=== PATIENT | female | born 1975 | race Caucasian/White ===

== ENCOUNTER 2021-12-21 15:11 | Outpatient (RCR) | payer BC | END 2022-01-04 | disposition home or self-care (01) | LOC: ONC 15:11 | PROVIDERS: ATTEND Internal Medicine Hematology & Oncology | DX: D72.829 Elevated white blood cell count, unspecified (principal) | CPT/HCPCS: 99204 ==

== ENCOUNTER 2022-10-14 04:10 | Emergency (ER) | payer BC ==
[~2022-10-14] VITALS: Ht 149.8 cm; Wt 108.5 kg
[2022-10-14] MEDS ORDERED: NITROGLYCERIN 0.4 MG SL TABLETS BTL 25'S SL STA (04:18)
--- NOTE | 2022-10-14 04:21 | ED Chest Pain ---
General Stated Complaint: CHEST PAIN Source: patient Exam Limitations: no limitations History of Present Illness Date Seen by Provider: Oct 14, 2022 Time Seen by Provider: 04:10 Initial Comments 47-year-old female with history of high blood pressure high cholesterol and diabetes mellitus presents to the emergency department for chest pain. Symptoms started when she woke up around 320. She describes it as a sensation as though she had worked out with pressure in her bilateral anterior chest wall. She did have some mild shortness of breath at the onset of her symptoms but denies any now. Pain initially at onset was 5-6 out of 10, now it is barely present at all. She denies any fevers or chills but has had some recent chest congestion. She has never had any cardiac history. She has never had a heart catheter stress test. No obvious aggravating or alleviating factors and no other associated symptoms. All other systems reviewed and negative except documented per HPI. Voice recognition software was used to help create this chart Allergies and Home Medications Allergies Coded Allergies: No Known Drug Allergies (Unverified , 10/14/22) Patient Home Medication List Home Medication List Reviewed: Yes Review of Systems Review of Systems Constitutional: see HPI Past Tgjdffr-Cpjuam-Ndzkgm Hx Patient Social History Tobacco Use?: Yes Use of E-Cig and/or Vaping dev: No Substance use?: No Alcohol Use?: No Physical Exam Vital Signs Vital Signs - First Documented 10/14/22 04:10 Temp 37.0 Pulse 93 Resp 18 B/P (MAP) 203/99 (133) Pulse Ox 97 O2 Delivery Room Air Capillary Refill : Height, Weight, BMI Height: '" Weight: lbs. oz. kg; BMI Method: General Appearance: No Apparent Distress, WD/WN HEENT: Normal ENT Inspection, Pharynx Normal Neck: Full Range of Motion, Normal Inspection, Non Tender, Supple Respiratory: Chest Non Tender, Lungs Clear, Normal Breath Sounds, No Accessory Muscle Use, No Respiratory Distress Cardiovascular: Regular Rate, Rhythm, No Murmur, Normal Peripheral Pulses Gastrointestinal: Normal Bowel Sounds, No Organomegaly, Non Tender, Soft Neurologic/Psychiatric: Alert, Oriented x3 Skin: Normal Color, Warm/Dry Progress/Results/Core Measures Results/Orders Lab Results Laboratory Tests Test 10/14/22 04:42 Range/Units White Blood Count 12.8 H 4.3-11.0 10^3/uL Red Blood Count 4.78 3.80-5.11 10^6/uL Hemoglobin 15.1 11.5-16.0 g/dL Hematocrit 44 35-52 % Mean Corpuscular Volume 91 80-99 fL Mean Corpuscular Hemoglobin 32 25-34 pg Mean Corpuscular Hemoglobin Concent 35 32-36 g/dL Red Cell Distribution Width 12.8 10.0-14.5 % Platelet Count 270 130-400 10^3/uL Mean Platelet Volume 9.6 9.0-12.2 fL Immature Granulocyte % (Auto) 0 % Neutrophils (%) (Auto) 59 42-75 % Lymphocytes (%) (Auto) 31 12-44 % Monocytes (%) (Auto) 6 0-12 % Eosinophils (%) (Auto) 3 0-10 % Basophils (%) (Auto) 1 0-10 % Neutrophils # (Auto) 7.5 1.8-7.8 10^3/uL Lymphocytes # (Auto) 3.9 1.0-4.0 10^3/uL Monocytes # (Auto) 0.8 0.0-1.0 10^3/uL Eosinophils # (Auto) 0.4 H 0.0-0.3 10^3/uL Basophils # (Auto) 0.1 0.0-0.1 10^3/uL Immature Granulocyte # (Auto) 0.0 0.0-0.1 10^3/uL My Orders Orders - MARY DEGROOT DO Cbc With Automated Diff (10/14/22 04:17) Chest 1 View Ap/Pa Only (10/14/22 04:17) Ekg Tracing (10/14/22 04:17) Comprehensive Metabolic Panel (10/14/22 04:17) Monitor-Rhythm Ecg Trace Only (10/14/22 04:17) Aspirin Chewable Tablet (Aspirin Chewabl (10/14/22 04:30) Ed Iv/Invasive Line Start (10/14/22 04:17) Troponin I Fs (10/14/22 04:17) Nitroglycerin 0.4 Mg Btl 25's (Nitroglyc (10/14/22 04:18) Medications Given in ED Current Medications Medications Dose Ordered Sig/Julieta Route Start Time Stop Time Status Last Admin Dose Admin Aspirin 324 mg ONCE ONCE PO 10/14/22 04:30 10/14/22 04:31 DC 10/14/22 04:29 324 MG Vital Signs/I&O 10/14/22 04:10 Temp 37.0 Pulse 93 Resp 18 B/P (MAP) 203/99 (133) Pulse Ox 97 O2 Delivery Room Air Comment Sinus rhythm with a rate of 88 bpm. Normal intervals. Left axis deviation. No ST or T wave abnormalities. No ectopy. No STEMI. Departure Communication (Admissions) Family Conversation Patient is hemodynamically stable. 2 neg sets of cardiac enzymes and nonischemic EKG. HEART score is 3. CXR is negative on my independent review. Impression Primary Impression: Chest pain Qualified Codes: R07.9 - Chest pain, unspecified Disposition: HOME, SELF-CARE Condition: Stable Departure-Patient Inst. Referrals: NOAH VELAZQUEZ APRN (PCP) Primary Care Physician Patient Instructions: Chest Pain (DC) Add. Discharge Instructions: You were seen in the ER for chest pain, No obvious cause was identified in the ER today. Your workup here is unremarkable with normal heart enzymes and a normal electrical tracing of your heart. This places you at low overall risk for heart attack. I recommend you follow up with your primary doctor in the next week for further treatment recommendations. Return to the ER for any recurrence of symptoms of if your symptoms change in any way concerning to you. MARY DEGROOT DO Oct 14, 2022 04:21
[2022-10-14] MEDS ORDERED: ASPIRIN 81 MG CHEWABLE TABLET PO ONE (04:30)
[2022-10-14 04:44] LABS: BASOPHILS # (AUTO) 0.1 10^3/uL (0.0-0.1); BASOPHILS % (AUTO) 1 % (0-10); EOSINOPHILS # (AUTO) 0.4 10^3/uL (0.0-0.3); EOSINOPHILS % (AUTO) 3 % (0-10); HEMATOCRIT 44 % (35-52); HEMOGLOBIN 15.1 g/dL (11.5-16.0); LYMPHOCYTES # (AUTO) 3.9 10^3/uL (1.0-4.0); LYMPHOCYTES % (AUTO) 31 % (12-44); MEAN CORPUSCULAR HEMOGLOBIN 32 pg (25-34); MEAN CORPUSCULAR HGB CONC 35 g/dL (32-36); MEAN CORPUSCULAR VOLUME 91 fL (80-99); MEAN PLATELET VOLUME 9.6 fL (9.0-12.2); MONOCYTES # (AUTO) 0.8 10^3/uL (0.0-1.0); MONOCYTES % (AUTO) 6 % (0-12); NEUTROPHILS # (AUTO) 7.5 10^3/uL (1.8-7.8); NEUTROPHILS % (AUTO) 59 % (42-75); PLATELET COUNT 270 10^3/uL (130-400); WHITE BLOOD COUNT 12.8 10^3/uL (4.3-11.0)
[2022-10-14 05:08] LABS: ALANINE AMINOTRANSFERASE 30 U/L (0-55); ALBUMIN 4.3 GM/DL (3.2-4.5); ALKALINE PHOSPHATASE 121 U/L (40-136); BILIRUBIN,TOTAL 0.3 MG/DL (0.1-1.0); BUN/CREATININE RATIO 33; CALCIUM 9.9 MG/DL (8.5-10.1); CARBON DIOXIDE 23 MMOL/L (21-32); CHLORIDE 102 MMOL/L (98-107); CREATININE SERUM 0.45 MG/DL (0.60-1.30); GFR ESTIMATED 120; GLUCOSE 230 MG/DL (70-105); POTASSIUM 3.7 MMOL/L (3.6-5.0); SODIUM 139 MMOL/L (135-145); TOTAL PROTEIN 7.1 GM/DL (6.4-8.2)
[2022-10-14 06:31] VITALS: BP 146/92
--- NOTE | 2022-10-14 06:38 | Diagnostic Imaging Report ---
CLINICAL INDICATION: Patient with chest pain. EXAM: Portable chest x-ray upright view. COMPARISON: None. FINDINGS: Lungs/pleura: Lungs are clear. There is no pneumothorax. There is no pleural effusion. Mediastinum: Unremarkable. Pulmonary vasculature: Unremarkable. Heart: Unremarkable. Bones/extrathoracic soft tissue: Unremarkable. IMPRESSION: There is no radiographic evidence of acute cardiopulmonary process. Dictated by: Dictated on workstation # [id number]
== END 2022-10-14 06:32 | disposition home or self-care (01) ==
LOC: EDUNIT# 04:10 → ER FS 04:11
DX: R07.89 Other chest pain (principal); Z72.0 Tobacco use; Z28.310 Unvaccinated for COVID-19
CPT/HCPCS: 36415; 71045; 80053; 84484; 85025; 93005; 93041